=== PATIENT | male | born 1980 | race Caucasian/White ===

== ENCOUNTER 2017-04-11 00:51 | Emergency (ER) | payer MEDICAID ==
--- NOTE | 2017-04-11 01:08 | ED Physician Chart ---
Chief Complaint/HPI - Patient Information Date Seen:: 04/11/17 Time Seen:: 01:00 Chief Complaint:: bilateral thigh pain History of Present Illness:: 36-year-old male, opioid addict taking Suboxone per the cures report, complains of acute, constant, mild, burning, 3 out of 10, nonradiating, bilateral thigh pain 2 weeks. Denies any injury, numbness, tingling, fevers, chills, nausea, vomiting, chest pain, palpitations, abdominal pain, dysuria, gross hematuria, rashes, swelling. Allergies:: Allergies Allergy/AdvReac Type Severity Reaction Status Date / Time No Known Allergies Allergy Verified 04/11/17 01:07 Historian:: Patient Review:: Nurse's Note Reviewed Review of Systems - Review of Systems Other: Complete system review otherwise unremarkable except as noted in history of present illness. Past Medical History - Past Medical History Past Medical History: Other (opioid addiction) Social History: Smoker, No Alcohol, No Drug Use, Other Surgical History: None Psychiatricy History: None Medication: Reviewed Family Medical History - Family Member Mother Ethnicity: Non- Living Status: Still Living Hx Family Cancer: No Hx Family Coronary Artery Disease: No Hx Family Congestive Heart Failure: No Physical Exam - Physical Examination Other:: INITIAL VITAL SIGNS: Reviewed by me GENERAL: Alert and interactive. No acute distress HEAD: Head is normocephalic and atraumatic EYES: EOMI. PERRL. No scleral icterus. No conjunctival injection ENT: Moist mucous membranes. NECK: Supple. No masses. Full range of motion RESPIRATORY: No tachypnea. Clear breath sounds bilaterally. No wheezing, rales, or rhonchi CV: Regular rate and rhythm. No murmurs, rubs, or gallops ABDOMEN: Soft, non-distended, non-tender. No guarding. No rebound. No masses. EXTREMITIES: No deformity. No cyanosis. No edema. SKIN: Warm and dry. No obvious rashes. NEUROLOGIC: Alert and oriented. Face is symmetric. Speech is normal. Moves all extremities equally. Motor and sensory distally intact. ED Septic Shock - . Is Septic Shock (SBP<90, OR Lactate>4 mmol\L) present?: No Reassessment (Disposition) - Reassessment Reassessment:: Patient was researched on the cures database. Patient receiving ibuprofen or from on a regular bimonthly basis for at least the past 6 months. No further dates were investigated. Patient presents with bilateral thigh pain for 2 weeks. Says he's been to other doctors in the past but there's been no diagnosis. He has no rash, no injuries, no fevers or the examination is completely unremarkable. Patient is walking without any gait abnormality. Patient was given intramuscular Toradol. Recommend follow-up with primary care or with your pain management physician Dr. Godinez. Return to ER precautions were given. Patient says he understands and agrees with the plan. SMOKING CESSATION COUNSELING: I spent greater than 3 minutes at the bedside with the patient discussing the benefits of smoking cessation, including decreased risk of heart disease, lung cancer, and emphysema. We also discussed strategies for smoking cessation, including pharmaceutical options. The patient was also encouraged to follow up with the primary care physician for outpatient follow-up. Blood pressure was noted to be elevated over 120/80. There were no signs of hypertension. Discussed the findings with the patient and recommended that the patient follow up with the primary care physician regarding the elevated blood pressure. Reassessment Condition:: Improved - Diagnosis Diagnosis:: Acute bilateral leg/thigh pain, neuropathic, unspecified Tobacco abuse Elevated blood pressure without diagnosis of hypertension - Aftercare/Follow up Instructions Aftercare/Follow-Up Instructions:: Counseled pt regarding lab results/diagnosis & need follow up, Refer to Discharge Instructions - Patient Disposition Discharge/Transfer:: Home Time:: 01:22 Condition at Disposition:: Improved ED Discharge Plan - Patient Disposition Admit/Discharge/Transfer: PT DISCHARGED HOME Condition at Disposition: Improved Instructions: Pain, Neuropathic
== END 2017-04-11 01:30 | disposition home or self-care (01) ==
LOC: ER 00:51
DX: M79.652 Pain in left thigh (principal); M79.651 Pain in right thigh; R03.0 Elevated blood-pressure reading, without diagnosis of hypertension; F17.200 Nicotine dependence, unspecified, uncomplicated
CPT/HCPCS: 99283; 96372; 99406; J1885; Z7502